=== PATIENT | female | born 1960 | race Caucasian/White ===

== ENCOUNTER 2017-01-27 18:04 | Emergency (ER) | payer OTHER ==
--- NOTE | ~2017-01-27 | CR127 ---
[facility] A Service of [facility] RADIOLOGY TEXT RESULTS PATIENT: JANEY COOPER LOCATION: SED : 60 UNIT #: [id number] AGE: [address]: PEDRITO LARA SEX: F ORDER DR: [id number] [place] [id number] MR#: [id number] #: [id number] NAME: JANEY COOPER : 1960 SEX: F STUDY DATE/TIME: 01/27/2017 18:32 UNIT: SED ROOM: STUDY DESCRIPTION: CR Foot Complete Min 3 View Rt Attending Physician: Pedrito Lara Ordering Physician: Physician Non-Staff Primary Care Physician: Primary Care Physician No MEDICAL IMAGING REPORT This report is preliminary unless electronic signature is present. EXAM 3 views right foot. DATE: 01/27/2017 HISTORY Right foot pain from injury at 05:20 today, tripped, foot stuck in a phone cord. COMPARISON None. FINDINGS The tarsal, metatarsal, and phalangeal elements are all anatomically normal in position and alignment. There are no articular defects. No fractures or radiopaque foreign bodies in the soft tissues are apparent. IMPRESSION Normal foot. Dictated by... Maryellen Oneill M.D. THIS IS AN ELECTRONICALLY VERIFIED REPORT Maryellen Oneill M.D. at 01/28/2017 10:05 AM DEANA/shellie TD: 01/28/2017 05:11 JOB #: [id number] [facility] A Service of [facility] RADIOLOGY TEXT RESULTS PATIENT: JANEY COOPER LOCATION: SED : 60 UNIT #: [id number] AGE: [address]: PEDRITO LARA SEX: F ORDER DR: MEDICAL IMAGING REPORT Page 1 of 1
[~2017-01-27 18:04] MED LIST: ALEVE PO; ASPIRIN81 MG PO; FLEXERIL PO; MOTRIN100 MG PO; NO MEDICATIONS; PROTONIX PO; RELACOR PO; VICODIN PO; ZYRTEC PO
== END 2017-01-27 19:40 | disposition home or self-care (01) ==
LOC: SED 18:04
DX: S93.601A Unspecified sprain of right foot, initial encounter (principal); F17.210 Nicotine dependence, cigarettes, uncomplicated; Z79.899 Other long term (current) drug therapy; W22.8XXA Striking against or struck by other objects, initial encounter; Y92.69 Other specified industrial and construction area as the place of occurrence of the external cause; Y99.0 Civilian activity done for income or pay
CPT/HCPCS: 29540; 73630; 99283